=== PATIENT | female | born 1985 ===

== ENCOUNTER 2018-03-30 18:02 | Inpatient (IN) | payer OTHER ==
[~2018-03-30] VITALS: Ht 165.1 cm; Wt 64.4 kg
[2018-03-30] MEDS ORDERED: PRENATAL TABLE1 EAC1 PO (18:54)
[2018-04-01] MEDS ORDERED: CODE1TAB37 PO (09:29)
== END 2018-04-01 12:38 | disposition home or self-care (01) | DRG 807 ==
LOC: OB/GYN 18:02 → LDR 18:02 → OB/GYN 03-31 00:53
PROVIDERS: ADMIT Obstetrics & Gynecology
PROC: 3E033VJ Introduction of Other Hormone into Peripheral Vein, Percutaneous Approach (ICD-10-PCS; 2018-03-30)
PROC: 4A1HXCZ Monitoring of Products of Conception, Cardiac Rate, External Approach (ICD-10-PCS; 2018-03-30)
PROC: 10E0XZZ Delivery of Products of Conception, External Approach (ICD-10-PCS; principal; 2018-03-31)
PROC: 0HQ9XZZ Repair Perineum Skin, External Approach (ICD-10-PCS; 2018-03-31)
DX: O70.0 First degree perineal laceration during delivery (principal); Z37.0 Single live birth; Z3A.37 37 weeks gestation of pregnancy